=== PATIENT | female | born 1970 | race Caucasian/White ===

== ENCOUNTER 2020-02-27 13:07 | Emergency (ER) | payer OTHER ==
[~2020-02-27] VITALS: Ht 154.9 cm; Wt 60.0 kg
[2020-02-27 14:12] LABS: BASOPHILS % 0.4 % (0.0-2.0); EOSINOPHILS % 1.8 % (0.0-5.0); HEMATOCRIT. 23.3 % (36.0-48.0); HEMOGLOBIN. 7.1 g/dL (12.0-16.0); LYMPHOCYTES % 8.1 % (20.0-50.0); MEAN CORPUSCULAR HEMOGLOBIN 19.9 pg (28.0-32.0); MEAN PLATELET VOLUME 7.5 fl (7.4-10.4); MONOCYTES % 7.7 % (2.0-8.0); PLATELET 569 x1000/uL (130-400); RED BLOOD CELL COUNT 3.58 mill/uL (4.2-5.4); RED CELL DISTRIBUTION WIDTH 22.4 % (11.6-14.6)
[2020-02-27 14:19] LABS: CHLORIDE 103 mEq/L (98-107)
[2020-02-27 14:22] LABS: ETHANOL BLOOD < 10 mg/dL
[2020-02-27 14:36] LABS: HCG SCREEN NEGATIVE
[2020-02-27 14:37] LABS: PLATELET ESTIMATE INCREASED; PROTHROMBIN TIME 10.8 sec (9.6-11.0)
[2020-02-27] MEDS ORDERED: KETOROLAC 60MG/2ML VIAL IM ONE (17:30)
[2020-02-27 17:55] VITALS: BP 97/54
== END 2020-02-27 17:57 | disposition home or self-care (01) ==
LOC: ER 13:36
DX: G89.3 Neoplasm related pain (acute) (chronic) (principal); R10.84 Generalized abdominal pain; C53.9 Malignant neoplasm of cervix uteri, unspecified; R03.0 Elevated blood-pressure reading, without diagnosis of hypertension; D64.9 Anemia, unspecified
CPT/HCPCS: 36415; 74176; 80053; 80320; 84703; 85025; 93005; 99285; G0480